=== PATIENT | female | born 1950 | race African-American/Black ===

== ENCOUNTER 2017-08-20 04:47 | Inpatient (IN) | payer OTHER, BC ==
[~2017-08-20] VITALS: Ht 167.6 cm; Wt 68.9 kg
--- NOTE | ~2017-08-20 | EXE ---
[facility] [address] [employer] [place] [address] STRESS ECHOCARDIOGRAM Name: ANGE JEROME Room #: 170-1 ADM IN .R.#: [id number] Admission: 08/20/17 Attend Phys: Nii Haines, Discharge: Date of : 46 Date of Service: 08/20/17 1043 Report #: [id number] THIS REPORT FOR: //name// APPROVED REPORT Exam: Stress Echocardiogram Indication: Chest pain Patient Location: Echo lab Stress Nurse: Sue Rubin RN Room #: ER 1 Status: routine Ht: 5 ft 6 in HR: 103 bpm BP: 140/84 mmHg Medical History Medical History: Diabetes, HTN Cardiac Risk Factors: HTN, DM Exercise History: Sedentary Procedure The patient underwent an Exercise Stress Test using the Jim Protocol. Blood pressure, heart rate, and EKG were monitored. An Echocardiogram was performed by field support technician in four stages in quad fashion. At peak stress, four selected images were obtained and placed side by side with resting images for comparison. Echo Enhancing Agent Indication: Endocardial border delineation Agent(s) / Amount(s) Used: Optison 6 cc Stress Test Details Stress Test: Exercise stress testing was performed using a Jim protocol. HR Resting HR: 103 bpm Max Heart Rate (APMHR): 151 bpm Max HR Achieved: 150 bpm Target HR (85% APMHR): 128 bpm % of APMHR: 99 Recovery HR: 106 bpm HR response to stress: Normal HR response to stress BP Resting BP: 140/843 mmHg Max BP: 172/70 mmHg [facility] [address] [place] [address] STRESS ECHOCARDIOGRAM Name: ANGE JEROME Room #: 170-1 ADM IN .R.#: [id number] Admission: 08/20/17 Attend Phys: Nii Haines, Discharge: Date of : 46 Date of Service: 08/20/17 1043 Report #: [id number] Recovery BP: 138/68 mmHg ECG Resting ECG: Sinus Rhythm Stress ECG: Sinus Tachycardia Recovery ECG: Sinus Rhythm Clinical Reason for Termination: Maximal effort Exercise duration: 2 min 23 sec Highest Stage Achieved: Stage 1: 1.7 mph at 10% grade. Exercise capacity: 4.6 METs Overall Exercise Capacity for Age: Extremely Poor Stress ECG Conclusion 1. subjectively negative for ischemia 2. electrocardiographically negative for ischemia 3. POOR functional capacity Pre-Stress Echo The resting Echocardiogram showed normal left ventricular contractility with an estimated Ejection Fraction of about 55-60%. Post-Stress Echo The stress Echocardiogram showed normal left ventricular contractility with an estimated Ejection Fraction of about 65-70%. Normal augmentation of wall motion in all segments on post stress images. Clinical Normal augmentation of myocardial wall segments using a 17 segment model. Conclusion 1. LOW RISK STUDY No prior study available for comparison. Other Information Study Quality: Good <Conclusion> 1. LOW RISK STUDY <ELECTRONICALLY SIGNED> By: Vinod Avina MD 08/20/17 1043 1043 1043 Vinod Avina MD /INF
--- NOTE | ~2017-08-20 | EKG ---
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1950 Requested By: Yonis Cochran Order Number: [id number] MD: Fabian Thomson Measurements Intervals [place] Rate: 108 P: 86 MN: 147 QRS: 25 QRSD: 78 T: 18 QT: 336 QTc: 451 Interpretive Statements Sinus tachycardia Nonspecific ST segment abnormality Compared to ECG 06/06/2011 01:25:53 Atrial premature complex(es) no longer present Electronically Signed On 08-20-2017 8:37:03 INTERMEDIATE SCHOOL TEACHER by Fabian Thomson [email or web address] <ELECTRONICALLY SIGNED> By: Fabian Thomson MD, [facility] 08/20/17 0837 2 045 Fabian Thomson MD, [facility] /EPI
[~2017-08-20 04:47] MED LIST: ADULT LOW DOSE81 MG PO; AMLODIPINE BESYL5 MG PO; ATIVAN1 MG PO; CELEXA 10 MG TA10 M1 PO; FLEXERIL PO; GLIPIZIDE ER10 MG PO; GLIPIZIDE XL10 MG PO; GLUCOPHAGE XR500 MG; LISINOPRIL10 MG PO; MECLIZINE 25 MG25 M1 PO; MEDROL DOSPAK21 TAB PO; MOTRIN 600 MG600 M1 OR; NORVASC10 MG PO; SYNTHROID100 MCG PO; SYNTHROID150 MCG PO; VALIUM2 MG PO; [UNRECOGNIZED DRUG - REMARK]
[2017-08-20 05:01] VITALS: BP 153/75
[2017-08-20] MEDS ORDERED: GLUCOTROL5 MG PO (05:07)
[2017-08-20] MEDS ORDERED: TRULICITY0.75 MG/0. SUBQ (05:08)
[2017-08-20 05:38] LABS: ABSOLUTE NEUTROPHILS 3.9 thou/uL (1.4-8.2); BASOPHILS 0.9 % (0.0-2.0); EOSINOPHILS 4.9 % (0.0-3.0); HEMATOCRIT 42.2 % (37.0-47.0); HEMOGLOBIN 14.4 gm/dL (12.0-15.0); MCH 27.2 pg (26.0-34.0); MCV 79.9 fL (80.0-100.0); MONOCYTES 8.4 % (1.0-8.0); PLATELET COUNT 290 thou/uL (150-400); POLYS 54.8 % (36.0-66.0); RBC 5.28 mil/uL (4.20-5.00); RDW 14.3 % (10.5-14.5); WBC 7.1 thou/uL (4.0-11.0)
[2017-08-20 05:50] LABS: ANION GAP 9 mmol/L (7-16); BUN 13 mg/dL (7-18); CALCIUM 8.9 mg/dL (8.5-10.1); CHLORIDE 104 mmol/L (98-107); CO2 25 mmol/L (21-32); CREATININE 0.7 mg/dL (0.6-1.0); GLUCOSE 185 mg/dL (74-106); SODIUM 138 mmol/L (136-145)
[2017-08-20 05:56] LABS: D-DIMER 0.31 ug/mLFEU (0.19-0.50); PROTIME 10.7 Seconds (9.3-11.4)
[2017-08-20 05:59] LABS: ALBUMIN 3.5 g/dL (3.4-5.0); MAGNESIUM 2.2 mg/dL (1.8-2.4); SGOT 19 U/L (15-37); SGPT 27 U/L (30-65); TOTAL BILIRUBIN 0.2 mg/dL (<0.1-1.0); TOTAL PROTEIN 7.8 g/dL (6.4-8.2); TROPONIN-I < 0.04 ng/mL (<0.06)
[2017-08-20] MEDS ORDERED: PROTONIX40 M1 PO (15:42)
[2017-08-20 15:47] VITALS: BP 132/60
[2018-04-11] MEDS ORDERED: SYNTHROID137 MC1 PO (10:04)
[2018-04-11] MEDS ORDERED: LOPERAMIDE 2 MG2 M1 PO (11:12)
[2018-05-14] MEDS ORDERED: LISINOPRIL20 MG PO (11:54)
[2018-05-14] MEDS ORDERED: ATIVAN0.5 MG PO (12:05)
== END 2017-08-20 16:40 | disposition home or self-care (01) | DRG 392 ==
LOC: ER 04:47 → EROBS 06:19
PROVIDERS: Emergency Medicine
DX: K21.9 Gastro-esophageal reflux disease without esophagitis (principal); E11.9 Type 2 diabetes mellitus without complications; I10 Essential (primary) hypertension; E78.5 Hyperlipidemia, unspecified; E89.0 Postprocedural hypothyroidism; Z80.0 Family history of malignant neoplasm of digestive organs; Z82.49 Family history of ischemic heart disease and other diseases of the circulatory system; Z90.710 Acquired absence of both cervix and uterus; Z79.899 Other long term (current) drug therapy; Z79.82 Long term (current) use of aspirin

== ENCOUNTER → 2018-01-21 | Outpatient (CLI) | payer OTHER, BC ==
[~2018-01-21] MED LIST changes: +GLUCOTROL5 MG PO; +PROTONIX40 M1 PO; +TRULICITY0.75 MG/0. SUBQ
== END ==
LOC: MRI 13:40
DX: M51.25 Other intervertebral disc displacement, thoracolumbar region (principal); M51.26 Other intervertebral disc displacement, lumbar region; M48.061 Spinal stenosis, lumbar region without neurogenic claudication; M47.897 Other spondylosis, lumbosacral region

== ENCOUNTER → 2018-05-18 | Outpatient (CLI) | payer OTHER, BC ==
[~2018-05-18] VITALS: Ht 165.1 cm; Wt 68.0 kg
[~2018-05-18] MED LIST changes: +ATIVAN0.5 MG PO; +LISINOPRIL20 MG PO; +LOPERAMIDE 2 MG2 M1 PO; +SYNTHROID137 MC1 PO
--- NOTE | ~2018-05-18 | PATH ---
[facility] [place] [address] [address] PATHOLOGY RPT PROCEDURE Name: JOSIE JERMOE Room #: REG BEVERLY Tuttle.#: [id number] Admission: 05/18/18 Date of : 46 Discharge: Report #: [id number] Path Case #: [id number] [facility] Accession Number: [id number] . 01 Material submitted: . PART A: RIGHT COLON BX R/O MICROSCOPIC COLITIS PART B: LEFT COLON BX R/O MICROSCOPIC COLITIS PART C: POLYP HEPATIC FLEXURE . 01 Clinical history: . Preop diagnosis: Diarrhea, screening Postop diagnosis: R/O microscopic colitis, colon polyp A. R/O microscopic colitis B. R/O microscopic colitis . 02 Diagnosis: A. Large intestinal mucosa, right colon, rule out microscopic colitis, endoscopic biopsy: - Mild focal active cryptitis with rare neutrophil/eosinophil, please see comment. - Negative for dysplasia or malignancy. . B. Large intestinal mucosa, left colon, endoscopic biopsy: - Reactive hyperplastic changes associated with lamina propria fibrosis (please see comment). - Negative for dysplasia or malignancy. . C. Polyp, at hepatic flexure, endoscopic biopsy: - Tubular adenoma. - Negative for high grade dysplasia. LBQ/05/20/2018 . 02 Comment: Examination of the right colon biopsy tissue shows mild focal active cryptitis with rare neutrophil, or eosinophil. The lamina propria cellularity shows a mild increase in eosinophils as well. Increased apoptosis is noted within the surface epithelium. There are no ulcerations, crypt abscesses, or granulomata identified. . The left colon biopsy tissue shows no evidence of active cryptitis present. Hyperplastic changes are identified within the mucosa in addition to lamina propria fibrosis. . There is no evidence of collagenous colitis, or lymphocytic colitis identified. Based on the morphology, the right colon appears to be a non-specific reactive change either secondary to allergic colitis, collagen vascular diseases, parasitic infection, or even eosinophilic [facility] [address] [place] [address] PATHOLOGY RPT PROCEDURE Name: JOSIE JEROME Room #: REG [facility].#: [id number] Admission: 05/18/18 Date of : 46 Discharge: Report #: [id number] Path Case #: [id number] colitis in addition to medication induced colitis. On the other hand, the left colon appears to show a chronic colitis with reactive hyperplastic changes. The differential diagnosis includes diverticulitis for the left sided colitis. Findings to suggest inflammatory bowel disease are not identified. Please correlate clinically and follow-up as indicated. (IUV/db; 05/20/18) . 02 Electronically signed: . Litzy Chen MD, Pathologist NPI- [id number] . 01 Gross description: . A. Received in formalin labeled "Josie Jerome, R colon BX," are six segments of arellano soft tissue measuring 1.1 x 0.6 x 0.3 cm in aggregate dimensions and ranging from 0.2 to 0.6 cm in maximum dimension. The specimen is submitted entirely in cassette A1. . B. Received in formalin labeled "Pallavi, Josie, L colon BX," are five segments of arellano soft tissue measuring 0.7 x 0.6 x 0.3 cm in aggregate dimensions and ranging from 0.2 to 0.5 cm in maximum dimension. The specimen is submitted entirely in cassette B1. . C. Received in formalin labeled "Josie Jerome, polyp hepatic flexure," is a segment of arellano-brown soft tissue measuring 0.5 x 0.3 x 0.3 cm in greatest dimensions. The specimen is submitted entirely in cassette C1. ([facility]; 05/19/2018) XDC/XDC . 02 Pathologist provided ICD-10: D12.3, K63.9 . 02 CPT . 655666, 232567, 885716 Specimen Comment: A courtesy copy of this report has been sent to Specimen Comment: [phone], . Specimen Comment: Report sent to / DR GARCIA Performed at: [address], [place] [id number] MD Jeramy Nieto MD Phone: [phone] Performed at: [address] [id number] MD Litzy Chen MD Phone: [phone]
== END | disposition home or self-care (01) ==
LOC: GI 07:57
DX: D12.3 Benign neoplasm of transverse colon (principal); K62.89 Other specified diseases of anus and rectum; D17.5 Benign lipomatous neoplasm of intra-abdominal organs; K64.8 Other hemorrhoids; I10 Essential (primary) hypertension; E11.9 Type 2 diabetes mellitus without complications; E03.9 Hypothyroidism, unspecified; F41.9 Anxiety disorder, unspecified; Z98.890 Other specified postprocedural states; Z79.4 Long term (current) use of insulin; Z90.710 Acquired absence of both cervix and uterus; Z79.899 Other long term (current) drug therapy
CPT/HCPCS: 62110; 62900

== ENCOUNTER 2019-08-04 02:25 | Emergency (ER) | payer OTHER, BC ==
[~2019-08-04] VITALS: Ht 160 cm; Wt 61.2 kg
[2019-08-04 03:26] LABS: ABSOLUTE NEUTROPHILS 2.8 thou/uL (1.4-8.2); BASOPHILS 1.3 % (0.0-2.0); EOSINOPHILS 3.7 % (0.0-3.0); HEMATOCRIT 44.4 % (37.0-47.0); HEMOGLOBIN 14.8 gm/dL (12.0-15.0); LYMPHOCYTES 35.8 % (24.0-44.0); MCH 27.1 pg (26.0-34.0); MCHC 33.3 g/dL (28.0-37.0); MCV 81.4 fL (80.0-100.0); MONOCYTES 8.3 % (1.0-8.0); PLATELET COUNT 248 thou/uL (150-400); POLYS 50.9 % (36.0-66.0); RBC 5.46 mil/uL (4.20-5.00); RDW 14.4 % (10.5-14.5); WBC 5.5 thou/uL (4.0-11.0)
[2019-08-04 03:34] LABS: CALCIUM 8.8 mg/dL (8.5-10.1); CREATININE 0.8 mg/dL (0.6-1.0); POTASSIUM 3.7 mmol/L (3.5-5.1)
[2019-08-04 03:39] LABS: ALBUMIN 3.5 g/dL (3.4-5.0); TOTAL BILIRUBIN 0.4 mg/dL (<0.1-1.0); TOTAL PROTEIN 7.8 g/dL (6.4-8.2)
[2019-08-04 04:20] VITALS: BP 123/69
== END 2019-08-04 04:20 | disposition home or self-care (01) ==
LOC: ER 02:25
PROVIDERS: Emergency Medicine
DX: E11.65 Type 2 diabetes mellitus with hyperglycemia (principal); I10 Essential (primary) hypertension; E03.9 Hypothyroidism, unspecified; F41.9 Anxiety disorder, unspecified; Z90.49 Acquired absence of other specified parts of digestive tract; Z90.710 Acquired absence of both cervix and uterus

== ENCOUNTER 2021-03-21 22:50 | Inpatient (IN) | payer OTHER, BC ==
[~2021-03-21] VITALS: Ht 160 cm; Wt 71.7 kg
[2021-03-21 22:52] VITALS: BP 137/53
[2021-03-21 23:30] LABS: ABSOLUTE NEUTROPHILS 11.5 thou/uL (1.4-8.2); BASOPHILS 0.3 % (0.0-2.0); EOSINOPHILS 0.1 % (0.0-3.0); HEMATOCRIT 39.7 % (37.0-47.0); HEMOGLOBIN 13.3 gm/dL (12.0-15.0); LYMPHOCYTES 6.5 % (24.0-44.0); MCH 27.3 pg (26.0-34.0); MCHC 33.6 g/dL (28.0-37.0); MCV 81.4 fL (80.0-100.0); MONOCYTES 4.2 % (1.0-8.0); PLATELET COUNT 360 thou/uL (150-400); POLYS 88.9 % (36.0-66.0); RBC 4.88 mil/uL (4.20-5.00); RDW 14.7 % (10.5-14.5); WBC 12.9 thou/uL (4.0-11.0)
[2021-03-21 23:55] LABS: APTT 27.4 Seconds (24.5-32.8); INR 1.22; PROTIME 13.2 Seconds (10.5-12.1)
[2021-03-22] VITALS (10 sets, daily range): BP systolic 111–139; BP diastolic 53–69
[2021-03-22 00:01] LABS: BE(vivo) -0.3 mmol/L (-2 to +3); HCO3 22.3 mmol/L (22.0-26.0); PCO2 30.8 mmHg (35.0-45.0); PO2 62.4 mmHg (80.0-100.0); pH 7.477 (7.360-7.450); sO2 93.6 % (92.0-98.0)
[2021-03-22 00:36] LABS: ANION GAP 18 mmol/L (7-16); BUN 21 mg/dL (7-18); CALCIUM 8.5 mg/dL (8.5-10.1); CHLORIDE 101 mmol/L (98-107); CO2 20 mmol/L (21-32); CREATININE 1.1 mg/dL (0.6-1.0); GLUCOSE 279 mg/dL (74-106); POTASSIUM 3.9 mmol/L (3.5-5.1); SODIUM 139 mmol/L (136-145)
[2021-03-22 00:47] LABS: ALBUMIN 2.3 g/dL (3.4-5.0); SGOT 73 U/L (15-37); SGPT 44 U/L (30-65); TOTAL BILIRUBIN 0.7 mg/dL (0.2-1.0); TOTAL PROTEIN 8.4 g/dL (6.4-8.2); TROPONIN-I <0.06 ng/mL (<0.06)
[2021-03-22 07:43] LABS: HEMATOCRIT 36.4 % (37.0-47.0); HEMOGLOBIN 12.2 gm/dL (12.0-15.0); MCH 27.4 pg (26.0-34.0); MCHC 33.4 g/dL (28.0-37.0); RBC 4.44 mil/uL (4.20-5.00); RDW 14.5 % (10.5-14.5)
[2021-03-22 07:58] LABS: ALBUMIN 2.1 g/dL (3.4-5.0); CALCIUM 8.2 mg/dL (8.5-10.1); CREATININE 0.9 mg/dL (0.6-1.0); POTASSIUM 4.2 mmol/L (3.5-5.1); TOTAL BILIRUBIN 0.4 mg/dL (0.2-1.0); TOTAL PROTEIN 7.4 g/dL (6.4-8.2)
[2021-03-22 15:35] LABS: BE(vivo) 2.1 mmol/L (-2 to +3); HCO3 25.5 mmol/L (22.0-26.0); PCO2 35.8 mmHg (35.0-45.0); PO2 144.5 mmHg (80.0-100.0)
--- NOTE | 2021-03-22 17:07 | NUR ---
71-year-old female presents to the ED on 03-21-21 with chief complaint of shortness of breath. Patient was recently diagnosed with COVID-19 and has been sick for approximately 7 days prior to ED visit. Patient continues to have shortness of breath with cough, fever and myalgias. Patient also had some diarrhea. The patient reports her symptoms are worse with exertion and better with rest. The patient informed the ED physician she was not vaccinated. CXR reveals interstitial opacities consistent with atypical Covid Pneumonia. The patient has been admitted with: Acute hypoxic resp failure. COVID PNA. As of 03-22-21 02 sat of 95 n BIPAP at 100% FI02. In the ED the patient is listed per assessment as A&O x4. The patient asked that her spouse with her point of contact as next of kin as Farhat [phone].
[2021-03-22 17:59] LABS: URINE BILIRUBIN NEGATIVE (Negative); URINE BLOOD 1+ (Negative); URINE CLARITY SL CLOUDY; URINE COLOR YELLOW; URINE GLUCOSE-RANDOM* 2+ (Negative); URINE KETONES 2+ (Negative); URINE LEUKOCYTES-REFLEX NEGATIVE (Negative); URINE NITRITE-REFLEX NEGATIVE (Negative); URINE PROTEIN (DIPSTICK) 1+ (Negative)
[2021-03-22 18:20] LABS: SQUAMOUS 0-3 Few /LPF (0-3); URINE WBC-REFLEX 0-5 Rare /HPF (0-5)
[2021-03-22 18:21] LABS: BACTERIA-REFLEX 1-9 Few /HPF (None Seen); URINE RBC 3-10 Few /HPF (NONE SEEN)
[2021-03-23] VITALS (68 sets, daily range): BP systolic 64–152; BP diastolic 37–83
[2021-03-23 05:11] LABS: HEMATOCRIT 41.8 % (37.0-47.0); HEMOGLOBIN 13.7 gm/dL (12.0-15.0); MCHC 32.7 g/dL (28.0-37.0); MCV 82.7 fL (80.0-100.0); RBC 5.06 mil/uL (4.20-5.00); RDW 15.1 % (10.5-14.5); WBC 12.8 thou/uL (4.0-11.0)
--- NOTE | 2021-03-23 05:35 | HC ---
[facility] [place] [address] [place] [address] CONSULTATION Name: ANGE JEROME Room #: [facility] [place]- ADM IN M.R.#: [id number] Admission: 03/22/21 Attend Phys: Petey Moy Discharge: Date of : 46 Report #: [id number] THIS REPORT FOR: cc: Simona Engle Beth RNP Barry, Joseph W. MD ~ DATE OF SERVICE: 03/22/2021 INFECTIOUS DISEASE CONSULTATION ATTENDING PHYSICIAN: Dr. Moy. REASON FOR EVALUATION: COVID-19 infection, complicated by pneumonitis and respiratory failure. HISTORY OF PRESENT ILLNESS: Chart reviewed and the patient examined. This is a 71-year-old woman with history of diabetes mellitus, hypertension, who presented to the Emergency Room with progressive dyspnea, has had cough as well. Apparently diagnosed with COVID-19 infection 1 week prior. She notes she initially had fever and chills. She has developed a poor appetite and minimal p.o. intake as well. She does admit to some degree of discomfort. Initial evaluation showed a lactic acid of 2.9, repeat was 1.9. D-dimer elevated to 12.72, although CT chest showed no evidence of PE. Initial ABGs: pH 7.477, pCO2 of 30.8, pO2 of 62.4 on 100% face mask. Procalcitonin 0.57. Blood cultures collected at time of admission are sterile thus far. ABGs were repeated, pH 7.470, pCO2 of 35.8, pO2 of 144.5 on BiPAP 100%. Was initiated on therapy with azithromycin, ceftriaxone, and remdesivir. ALLERGIES: None known. CURRENT MEDICATIONS: Include furosemide, apixaban, famotidine, dexamethasone, ceftriaxone, insulin sliding scale, p.r.n. analgesics, antiemetics, azithromycin, and remdesivir. PAST MEDICAL HISTORY: As described above, history of diabetes mellitus type 2, hypertension, hypothyroidism. SOCIAL HISTORY: Nonsmoker, no ethanol, no illicit drug use. FAMILY HISTORY: Noncontributory. REVIEW OF SYSTEMS: Somewhat limited otherwise unremarkable. PHYSICAL EXAMINATION: GENERAL: She appears chronically ill and undernourished. She is anxious, moderate distress at rest. Mildly encephalopathic. [facility] [address] [place] [address] CONSULTATION Name: ANGE JEROME Room #: [address] [place] [address] [place] [facility].#: [id number] Admission: 03/22/21 Attend Phys: Petey Moy Discharge: Date of : 46 Report #: [id number] VITAL SIGNS: Temperature 98, pulse 90, respirations 26, blood pressure 116/57. SKIN: Warm, dry, no rashes. HEENT: Normocephalic, has BiPAP in place. NECK: Supple. LUNGS: Scattered coarse breath sounds. HEART: Distant, appears to be regular. ABDOMEN: Mildly distended, somewhat firm, nontender. EXTREMITIES: No cyanosis. GENITOURINARY AND RECTAL: Deferred. LABORATORY DATA: ABGs noted above, pH 7.470, pCO2 of 35.8, pO2 144.5 on 100% nonrebreather. Electrolytes: Sodium 142, potassium 4.2, chloride 107, bicarbonate 25, anion gap of 10, BUN and creatinine 18 and 0.9, glucose of 312, AST of 61, ALT of 44. Albumin 2.1. Total protein 7.4. CBC: White count of 11.0, H and H 12.2 and 36.4, platelets of 290. Blood culture sterile thus far. Followup chest x-ray showed perihilar interstitial opacities. CRP elevated at 477. ASSESSMENT: COVID-19 infection, complicated by pneumonitis, respiratory failure in the setting of diabetes mellitus and hypertension. PLAN: We will continue current therapy empirically with ceftriaxone and azithromycin and therapy directed to the coronavirus. We will add ivermectin, vitamins, Actemra in addition to the corticosteroids and remdesivir. She remains quite tenuous at this point, certainly at risk for further complications and clinical deterioration with possibility of mechanical ventilatory support. Continue to monitor expectantly. <ELECTRONICALLY SIGNED> By: Francisco Barnett MD 03/23/21 0535 1446 2303 Francisco Barnett MD /nt
[2021-03-23 05:39] LABS: ALBUMIN 2.1 g/dL (3.4-5.0); CALCIUM 8.6 mg/dL (8.5-10.1); CREATININE 0.8 mg/dL (0.6-1.0); DIRECT BILIRUBIN 0.2 mg/dL (<0.1-0.2); PHOSPHORUS 2.8 mg/dL (2.5-4.9); POTASSIUM 4.4 mmol/L (3.5-5.1); TOTAL BILIRUBIN 0.5 mg/dL (0.2-1.0); TOTAL PROTEIN 8.1 g/dL (6.4-8.2)
--- NOTE | 2021-03-23 06:38 | NUR ---
PATIENT ARRIVED AT THE UNIT AT APPROX 2200. PT A/OX4. DENIES N/V, PAIN. ON 10L VIA NON REBREATHER SATS >90%. AFEBRILE. VSS. KRISHNAMURTHY IN PLACE WITH GOOD U/O. DENIES NEEDS. WILL KEEP MONITORING
--- NOTE | 2021-03-23 09:27 | EKG ---
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1950 Requested By: Hubert Goldman Order Number: [id number] MD: Fabian Thomson Measurements Intervals [place] Rate: 133 P: 74 NC: 123 QRS: 28 QRSD: 80 T: 6 QT: 280 QTc: 417 Interpretive Statements Sinus tachycardia Nonspecific ST segment abnormality Borderline T wave abnormalities Compared to ECG 04/11/2018 09:05:[address] and T wave segments Electronically Signed On 03-23-2021 9:27:06 CDT by Fabian Thomson [email or web address] <ELECTRONICALLY SIGNED> By: Fabian Thomson MD, [facility] 03/23/21926 29 29 Fabian Thomson MD, [facility] /EPI
--- NOTE | 2021-03-23 12:20 | NUR ---
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 Patient admits from home. Reviewed chart. Patient on 15 liters non rebreather. Lives at home with spouse. She is not vaccinated. PCP Simona Martinez. Had medicare/ [facility]. Casemgt avail and following for dc planning.
--- NOTE | 2021-03-23 12:40 | NUR ---
PATIENT REMOVED BOTH IV'S. PATIENT IS AOX4 AND REFUSES PERIPHERAL IV PLACEMENT AND CENTRAL LINE PLACEMENT.
[2021-03-23 16:05] LABS: HCO3 22.3 mmol/L (22.0-26.0); PCO2 40.6 mmHg (35.0-45.0); PO2 93.7 mmHg (80.0-100.0); pH 7.357 (7.360-7.450); sO2 96.9 % (92.0-98.0)
[2021-03-24] VITALS (96 sets, daily range): BP systolic 67–137; BP diastolic 39–68
[2021-03-24 04:13] LABS: ABSOLUTE NEUTROPHILS 14.4 thou/uL (1.4-8.2); BASOPHILS 0.5 % (0.0-2.0); HEMATOCRIT 37.6 % (37.0-47.0); HEMOGLOBIN 12.5 gm/dL (12.0-15.0); LYMPHOCYTES 4.4 % (24.0-44.0); MCH 27.6 pg (26.0-34.0); MCHC 33.2 g/dL (28.0-37.0); MCV 83.2 fL (80.0-100.0); MONOCYTES 3.7 % (1.0-8.0); PLATELET COUNT 312 thou/uL (150-400); POLYS 91.4 % (36.0-66.0); RBC 4.52 mil/uL (4.20-5.00); RDW 14.9 % (10.5-14.5); WBC 15.8 thou/uL (4.0-11.0)
[2021-03-24 04:37] LABS: CALCIUM 7.7 mg/dL (8.5-10.1); CREATININE 1.6 mg/dL (0.6-1.0); DIRECT BILIRUBIN 0.2 mg/dL (<0.1-0.2); PHOSPHORUS 4.2 mg/dL (2.5-4.9); TOTAL BILIRUBIN 0.4 mg/dL (0.2-1.0); TOTAL PROTEIN 7.5 g/dL (6.4-8.2)
--- NOTE | 2021-03-24 08:38 | NUR ---
ASSUMED CARE AT 0700 SPOKE TO PATIENT DOMESTIC PARTNER AT 0840 AND UPDATED PER POC AND ANSWERED ALL QUESTIONS.
[2021-03-25] VITALS (98 sets, daily range): BP systolic 74–155; BP diastolic 40–71
[2021-03-25 05:24] LABS: HEMATOCRIT 39.4 % (37.0-47.0); HEMOGLOBIN 12.7 gm/dL (12.0-15.0); MCH 26.8 pg (26.0-34.0); MCHC 32.1 g/dL (28.0-37.0); MCV 83.4 fL (80.0-100.0); RBC 4.73 mil/uL (4.20-5.00); RDW 15.3 % (10.5-14.5)
[2021-03-25 05:25] LABS: CALCIUM 8.4 mg/dL (8.5-10.1); CREATININE 1.8 mg/dL (0.6-1.0); DIRECT BILIRUBIN 0.2 mg/dL (<0.1-0.2); PHOSPHORUS 4.5 mg/dL (2.6-4.7); POTASSIUM 3.9 mmol/L (3.5-5.1); TOTAL BILIRUBIN 0.4 mg/dL (0.2-1.0); TOTAL PROTEIN 7.4 g/dL (6.4-8.2)
--- NOTE | 2021-03-25 08:52 | NUR ---
ASSUMED CARE OF PT AT 0700 SPOKE TO PT SON AT 0850 AND UPDATED HIM PER POC AND LET HIM KNOW THAT THE WOMAN NAMED MICKIE IS CALLING AGAIN ASKING FOR UPDATES AND HE STATED HE WOULD CALL HER AND TELL HER SHE IS NOT FAMILY AND IS NOT TO BE GETTING UPDATES.
--- NOTE | 2021-03-25 23:18 | NUR ---
PT HYPOTHERMIC, TEMP 94.4. WARM BLANKETS APPLIED WITHOUT MUCH IMPROVEMENT IN TEMP. JORGE HUGGER WARMING BLANKET APPLIED. WILL MONITOR FURTHER.
[2021-03-26] VITALS (91 sets, daily range): BP systolic 92–149; BP diastolic 47–71
--- NOTE | 2021-03-26 03:46 | NUR ---
NO SIGNIFICANT EVENTS SO FAR DURING THE NIGHT. PT REMAINS SEDATED WITH PROPOFOL, VERSED, AND FENTANYL. BILATERAL WRIST RESTRAINTS IN PLACE TO PREVENT DISCONNECTING LINES/TUBES. LEVOPHED GTT TITRATED DOWN PT WAS BECOMING HYPERTENSIVE AT HIGHER RATE. RIGHT AND LEFT CHEST TUBES INTACT AND PATENT; AIR LEAK PRESENT IN BOTH CHEST TUBES. PT HAS SUBCUTANEOUS AIR TO BILATERAL SIDES OF HER CHEST. KRISHNAMURTHY TO DD WITH ADEQUATE URINE OUTPUT. TEMP NOW WITHIN NORMAL LIMITS WITH JORGE HUGGER BLANKET IN PLACE. RT TITRATED FIO2 FROM 70% DOWN TO 60% ON VENT. PROGRESSING SLOWLY TOWARD POC GOALS. WILL MONITOR FURTHER.
[2021-03-26 04:39] LABS: HEMATOCRIT 36.7 % (37.0-47.0); HEMOGLOBIN 12.1 gm/dL (12.0-15.0); MCH 27.1 pg (26.0-34.0); MCHC 32.9 g/dL (28.0-37.0); MCV 82.2 fL (80.0-100.0); RBC 4.46 mil/uL (4.20-5.00); RDW 14.9 % (10.5-14.5); WBC 14.8 thou/uL (4.0-11.0)
[2021-03-26 04:53] LABS: ALBUMIN 1.7 g/dL (3.4-5.0); CALCIUM 8.2 mg/dL (8.5-10.1); CREATININE 1.2 mg/dL (0.6-1.0); DIRECT BILIRUBIN 0.2 mg/dL (<0.1-0.2); POTASSIUM 3.6 mmol/L (3.5-5.1); TOTAL BILIRUBIN 0.4 mg/dL (0.2-1.0); TOTAL PROTEIN 6.6 g/dL (6.4-8.2)
--- NOTE | 2021-03-26 05:53 | NUR ---
TEMP 98.0 AXILLARY. WARMING BLANKET TAKEN OFF AT THIS TIME.
--- NOTE | 2021-03-26 10:11 | NUR ---
ASSUMMED CARE OF THIS PATIENT FROM THE NIGHT NURSE, CARLOS EDUARDO. PATIENT REMAINS ON LEVOPHED WHICH WAS TAPPERED DOWN MAP IS GREATER THAN 70MMHG. REMAINS SEDATED. WILL CONTINUE TO MONITOR.
--- NOTE | 2021-03-26 12:45 | NUR ---
1230 SPOKE WITH THE PATIENT'S AND UPDATED HIM ON THE POC. QUESTIONS ANSWERED AND REASSURANCE GIVEN. 1235 SPOKE WITH PATIENT'S SON SOILA AND UPDATED HIM ON THE POC AND REASSURANCE GIVEN, QUESTIONS ADDRESSED.
--- NOTE | 2021-03-26 15:02 | NUR ---
Chart review, discussed during am unite rounds and los with the hospitalist. COVID +. Bedside nurse cont. family. Vent. Nutritional support. Will cont. following as needed for dc needs.
--- NOTE | 2021-03-26 16:38 | NUR ---
PATIENT IS STABLE BUT NOT PROGRESSING TOWARDS OUTCOME GOALS. PLEASE REFER TO ASSESSMENTS. LEVOFHED TAPPERED. PROPOFOL TAPPERED WHILE FENTANYL AND VERSED INCREASED.
--- NOTE | 2021-03-26 21:49 | NUR ---
ASSUMED CARE OF PATIENT AT 190. ALL LINES AND TUBES REVIEWED WITH AM NURSE. AT 2044, PATIENT O2 SAT DROPPED, INCREASINGLY MORE TACHYPNIC WITH BREATHING. RIGHT CHEST TUBE DOES NOT APPEAR TO BE BUBBLING IT WAS AT THE BEGINNING OF SHIFT. DR SHERWOOD NOTIFIED. STAT CXR OBTAINED. RADIOLOGY PHYSICIAN CALLED AND NOTIFIED THIS RN THAT THE RIGHT LUNG IS COLLAPSED. DR SHERWOOD NOTIFIED AT 2129 , WAITING FOR HIM TO COME IN TO REPLACE CHEST TUBE.
[2021-03-27] VITALS (35 sets, daily range): BP systolic 78–139; BP diastolic 44–71
[2021-03-27 04:36] LABS: BE(vivo) 3.8 mmol/L (-2 to +3); HCO3 29.2 mmol/L (22.0-26.0); PCO2 47.2 mmHg (35.0-45.0); PO2 67.2 mmHg (80.0-100.0); pH 7.409 (7.360-7.450); sO2 93.4 % (92.0-98.0)
[2021-03-27 04:52] LABS: HEMATOCRIT 36.5 % (37.0-47.0); HEMOGLOBIN 11.8 gm/dL (12.0-15.0); MCH 26.9 pg (26.0-34.0); MCHC 32.3 g/dL (28.0-37.0); MCV 83.2 fL (80.0-100.0); RBC 4.39 mil/uL (4.20-5.00); RDW 15.1 % (10.5-14.5); WBC 13.3 thou/uL (4.0-11.0)
[2021-03-27 05:47] LABS: CREATININE 1.2 mg/dL (0.6-1.0); POTASSIUM 3.5 mmol/L (3.5-5.1)
--- NOTE | 2021-03-27 09:57 | NUR ---
ASSUMED CARE AT 0700
[2021-03-28] VITALS (45 sets, daily range): BP systolic 95–166; BP diastolic 48–80
[2021-03-28 03:26] LABS: MCH 26.9 pg (26.0-34.0)
[2021-03-28 03:28] LABS: HEMATOCRIT 33.6 % (37.0-47.0); HEMOGLOBIN 10.9 gm/dL (12.0-15.0); MCHC 32.3 g/dL (28.0-37.0); MCV 83.5 fL (80.0-100.0); RBC 4.03 mil/uL (4.20-5.00); RDW 15.3 % (10.5-14.5); WBC 13.6 thou/uL (4.0-11.0)
[2021-03-28 04:00] LABS: BE(vivo) 2.5 mmol/L (-2 to +3); HCO3 28.3 mmol/L (22.0-26.0); PO2 66.3 mmHg (80.0-100.0); sO2 92.6 % (92.0-98.0)
[2021-03-28 04:51] LABS: CALCIUM 7.7 mg/dL (8.5-10.1); POTASSIUM 3.9 mmol/L (3.5-5.1)
--- NOTE | 2021-03-28 06:28 | NUR ---
ASSUMED CARE OF PATIENT AT 1900. TITRATED LEVOPHED OFF AT THIS TIME. PROPOFOL TITTRATED DOWN, PATIENT MORE ALERT, FOLLOWING COMMANDS. NO S/S OF DISTRESS. NO CONTACT WITH FAMILY THIS SHIFT.
--- NOTE | 2021-03-28 11:29 | NUR ---
ASSUMED CARE OF PT AT 0700 DR. ARNOLD AT BEDSIDE AT 1115, NO NEW ORDERS GIVEN
--- NOTE | 2021-03-28 12:23 | NUR ---
SPOKE TO PT'S SON ANGIE AT 1220 AND UPDATED PER POC AND ANSWERED ALL QUESTIONS
[2021-03-29] VITALS (53 sets, daily range): BP systolic 84–176; BP diastolic 49–81
[2021-03-29 05:28] LABS: HEMATOCRIT 31.2 % (37.0-47.0); HEMOGLOBIN 10.2 gm/dL (12.0-15.0); MCH 27.7 pg (26.0-34.0); MCHC 32.8 g/dL (28.0-37.0); MCV 84.4 fL (80.0-100.0); RBC 3.7 mil/uL (4.20-5.00); RDW 15.4 % (10.5-14.5); WBC 14.3 thou/uL (4.0-11.0)
[2021-03-29 05:40] LABS: CALCIUM 8.5 mg/dL (8.5-10.1); CREATININE 0.9 mg/dL (0.6-1.0); POTASSIUM 4.1 mmol/L (3.5-5.1)
--- NOTE | 2021-03-29 12:26 | NUR ---
1220HRS - PT'S SON CALLED WITH PT'S NIECE (TREAD BOOKER AT [facility]). THEY WERE BOTH UPDATED AND INFORMED OF PT'S CONDITION.
--- NOTE | 2021-03-29 15:22 | HC ---
[facility] [place] [address] [address] CONSULTATION Name: ANGE JEROME Room #: 241-P [facility] IN M.R.#: [id number] Admission: 03/22/21 Attend Phys: Petey Moy Discharge: Date of : 46 Report #: [id number] THIS REPORT FOR: cc: Simona Engle Beth RNP Forman, John M. MD ~ DATE OF SERVICE: 03/28/2021 We were asked to see the patient by Dr. South. HISTORY OF PRESENT ILLNESS: The patient is a 71-year-old admitted 03/21/2021 with acute hypoxic respiratory failure related to COVID pneumonia. The patient stated that she had tested positive for COVID 1 week prior to admission. The patient had been exposed to preschool children and family. The patient initially had cough, fever, chills, and poor appetite. The patient stated that she had not been feeling well. She was seen in the Emergency Department 03/21/2021 and 03/22/2021. Chest x-ray showed bilateral patchy infiltrate consistent with COVID pneumonia and she was intubated. Since admission, the patient has been on the ventilator. The patient had problems with barotrauma and sustained a pneumothorax on the left side after central line was placed. Pigtail catheter was placed for this. Another pneumothorax developed on the right was treated with a pigtail catheter, but this fell out Friday night and a chest tube was placed on 03/26/2021. We were consulted because of a small persistent pneumothorax on the right. Chest x-ray shows that the chest tube is basal in position and not inserted very far. In addition, on closer inspection, the tube appears to be full of clot. An intermittent air leak was seen through both chest tubes. PAST MEDICAL HISTORY: Positive for diabetes mellitus, hypertension, hypothyroidism as well as COVID. MEDICATIONS: Medications at home includes levothyroxine, amlodipine, glipizide, lisinopril. REVIEW OF SYSTEMS: The patient is intubated and I have no reason to differ with the review of systems in the chart already. PHYSICAL EXAMINATION: GENERAL: The patient is intubated and sedated. VITAL SIGNS: Temperature 36.9, heart rate 100, blood pressure 146/69, pulse ox 95 on 12 liters documented, 60% and a PEEP. HEENT: No scleral icterus. NECK: No mass, no bruit. [facility] [address] [place] [address] CONSULTATION Name: ANGE JEROME Room #: 241-P [facility] IN [facility].#: [id number] Admission: 03/22/21 Attend Phys: Petey Moy Discharge: Date of : 46 Report #: [id number] CHEST: The patient has subcutaneous emphysema palpable. Breath sounds are clear with some scattered rhonchi. HEART: Heart tones are distant. Heart rhythm regular. ABDOMEN: Soft. EXTREMITIES: Trace edema. No clubbing, cyanosis. As mentioned, chest x-ray shows a small rim of air around the right lung, but otherwise it is expanded with patchy infiltrates, left lung has scattered infiltrates with no pneumothorax. Chest tube itself has clotted blood within it. I took a sterile endotracheal suction catheter and the sterile technique, cleaned out the chest tube of clot. When this was completed, the chest tube was placed back to [facility] suction with a more continuous air leak indicating patency of the tube. Chest x-ray was obtained that showed only a small apical and lateral pneumothorax. ASSESSMENT: The patient has barotrauma in the throes of the COVID pneumonia. Currently, both lungs are reasonably well expanded. A right-sided chest tube is a bit basal and a bit superficial and a better chest tube can be placed if it is determined that this makes a difference in the patient's status. At this point, the trivial pneumothorax does not appear to be a limiting problem and there is definitely no evidence of tension. We will follow along with you. Thank you for the consult. <ELECTRONICALLY SIGNED> By: Quan Sim MD 03/29/21 1522 1208 2223 Quan Sim MD /nt
[2021-03-29 19:58] LABS: BE(vivo) 7.3 mmol/L (-2 to +3); HCO3 33.2 mmol/L (22.0-26.0); PCO2 53.1 mmHg (35.0-45.0); PO2 59.4 mmHg (80.0-100.0); pH 7.414 (7.360-7.450); sO2 90.6 % (92.0-98.0)
[2021-03-30] VITALS (54 sets, daily range): BP systolic 100–186; BP diastolic 51–89
[2021-03-30 03:43] LABS: HEMATOCRIT 32.2 % (37.0-47.0); HEMOGLOBIN 10.7 gm/dL (12.0-15.0); MCH 27.8 pg (26.0-34.0); MCHC 33.1 g/dL (28.0-37.0); MCV 84.1 fL (80.0-100.0); RBC 3.83 mil/uL (4.20-5.00); RDW 15.4 % (10.5-14.5); WBC 14.6 thou/uL (4.0-11.0)
[2021-03-30 03:48] LABS: CALCIUM 8.9 mg/dL (8.5-10.1); CREATININE 0.8 mg/dL (0.6-1.0); POTASSIUM 3.8 mmol/L (3.5-5.1)
--- NOTE | 2021-03-30 04:31 | NUR ---
ASSUMED CARE OF PATIENT AT 1900. PATIENT TACHYCARDIC, HYPERTENSIVE, LOW O2 SATS, CRACKLES IN LUNGS. DR SHERWOOD NOTIFIED, CXR AND ABG ORDERED. RESULTS CALLED TO DR SHERWOOD, ORDER FOR LASIX OBTAINED. LASIX GIVEN, OUTPUT CHARTED. REMAINS SEDATED, BLOOD PRESSURE, O2 SAT AND HEART RATE IMPROVED.
--- NOTE | 2021-03-30 14:31 | NUR ---
Chart review, discussed during lost with hospitalist and unite rounds with pulmonary. COVID +, Vent, nutritional support. Isolation. No anticipated discharge. Cm called spouse, no answer. will cont. following as needed for discharge needs.
[2021-03-31] VITALS (42 sets, daily range): BP systolic 90–185; BP diastolic 46–90
--- NOTE | 2021-03-31 12:58 | NUR ---
ASSUMED CARE AT SHIFT CHANGE. PT MAINTAINING OXYGENATION AT CURRENT VENT SETTINGS. WHEN SEDATION MED X1 IS OFF, PT BECOMES TACHYCARDIC,TACHYPNIC, HYPERTENSIVE, AND DESATS TO LOW 90'S- UPPER 80'S. SON IVAN AND GURDEEP UPDATED ON THE PHONE TODAY. PT HAS MINIMAL OUTPUT FROM CHEST TUBES THIS SHIFT. ASSESSMENTS PER OCT. GIVEN MIRALAX TODAY TO STIMULATE BM PT HAS NOT HAD ONE IN SEVERAL DAYS. TF AT GOAL RATE, MINIMAL RESIDUALS. BG CONTROLLED WITH SS INSULIN. WILL CONT TO MONITOR AND FOLLOW POC.
[2021-03-31 15:34] LABS: HEMATOCRIT 31.9 % (37.0-47.0); HEMOGLOBIN 10.3 gm/dL (12.0-15.0); MCHC 32.3 g/dL (28.0-37.0); MCV 83.5 fL (80.0-100.0); RBC 3.82 mil/uL (4.20-5.00); WBC 15.7 thou/uL (4.0-11.0)
[2021-03-31 15:39] LABS: CALCIUM 8.9 mg/dL (8.5-10.1); CREATININE 0.8 mg/dL (0.6-1.0); POTASSIUM 5.7 mmol/L (3.5-5.1)
[2021-04-01] VITALS (26 sets, daily range): BP systolic 80–159; BP diastolic 44–80
[2021-04-01 05:06] LABS: HEMATOCRIT 33.7 % (37.0-47.0); HEMOGLOBIN 10.9 gm/dL (12.0-15.0); MCH 27.3 pg (26.0-34.0); MCHC 32.4 g/dL (28.0-37.0); MCV 84.1 fL (80.0-100.0); RBC 4.01 mil/uL (4.20-5.00); RDW 15.1 % (10.5-14.5); WBC 15.8 thou/uL (4.0-11.0)
[2021-04-01 06:03] LABS: CALCIUM 9.1 mg/dL (8.5-10.1); CREATININE 0.7 mg/dL (0.6-1.0); MAGNESIUM 2.2 mg/dL (1.8-2.4)
[2021-04-01 06:15] LABS: POTASSIUM 4.7 mmol/L (3.5-5.1)
--- NOTE | 2021-04-01 11:23 | NUR ---
ASSUMED CARE OF PT AT 0700.
--- NOTE | 2021-04-01 11:40 | NUR ---
DR. SHERWOOD AT BEDSIDE AT 1140 AND I ASKED HIM ABOUT THE DROP IN O2 AND COULD IT BE RELATED TO WORSENING PNEUMO AND HE INDICATED THAT HE DIDN'T THINK SO BUT THAT DR. PADRON NEEDS TO BE ASKED.
[2021-04-01 16:21] LABS: BE(vivo) 7.5 mmol/L (-2 to +3); HCO3 34.5 mmol/L (22.0-26.0); PCO2 61.8 mmHg (35.0-45.0); PO2 82.8 mmHg (80.0-100.0); pH 7.365 (7.360-7.450); sO2 95.5 % (92.0-98.0)
--- NOTE | 2021-04-01 21:28 | NUR ---
This RN discussed patients [address] South at 1900. No new orders received.
[2021-04-02] VITALS (36 sets, daily range): BP systolic 84–171; BP diastolic 41–77
[2021-04-02 04:55] LABS: CALCIUM 8.8 mg/dL (8.5-10.1); CREATININE 0.7 mg/dL (0.6-1.0); MAGNESIUM 2.1 mg/dL (1.8-2.4); POTASSIUM 4.5 mmol/L (3.5-5.1)
[2021-04-02 04:57] LABS: HEMATOCRIT 32.1 % (37.0-47.0); HEMOGLOBIN 10.6 gm/dL (12.0-15.0); MCH 27.5 pg (26.0-34.0); MCV 83.3 fL (80.0-100.0); RBC 3.86 mil/uL (4.20-5.00); RDW 14.6 % (10.5-14.5)
--- NOTE | 2021-04-02 12:26 | NUR ---
ASSUMED CARE AT 0700. PATIENT'S SON, ANGIE, CALLED FROM [phone] AND HE WAS UPDATED AND EDUCATED ON THE PATIENT'S CONDITION AND PLAN OF CARE.
--- NOTE | 2021-04-02 16:11 | NUR ---
Chart review, discussed during am unite rounds and los. COVID, enhanced isolation. Vent and nutritional support. Chest tube left and right. Will cont. following as needed for dc needs.
--- NOTE | 2021-04-02 19:59 | NUR ---
PATIENT IS NOT PROGRESSING TOWARDS PLAN OF CARE EVIDENCED BY HIGH OXYGEN DEMAND. PATIENT BECOMES TACHYCARDIC WHEN PLACED ON RIGHT SIDE DURING REPOSITIONING.
[2021-04-03] VITALS (66 sets, daily range): BP systolic 79–167; BP diastolic 39–80
[2021-04-03 01:55] LABS: HEMATOCRIT 32.7 % (37.0-47.0); HEMOGLOBIN 10.7 gm/dL (12.0-15.0); MCH 27.3 pg (26.0-34.0); MCHC 32.8 g/dL (28.0-37.0); MCV 83.5 fL (80.0-100.0); RBC 3.92 mil/uL (4.20-5.00); RDW 14.5 % (10.5-14.5); WBC 14.8 thou/uL (4.0-11.0)
[2021-04-03 01:59] LABS: CALCIUM 9.3 mg/dL (8.5-10.1); CREATININE 0.8 mg/dL (0.6-1.0); MAGNESIUM 2.1 mg/dL (1.8-2.4); POTASSIUM 4.9 mmol/L (3.5-5.1)
--- NOTE | 2021-04-03 05:40 | NUR ---
Patient not progressing towards goal, as evidence by the inability to wean Fi02 or PEEP this shift. Patient still not tolerating being turned to right side. Patient not requiring blood pressure support at this time.
--- NOTE | 2021-04-03 12:27 | NUR ---
SPOKE WITH PATIENT'S SON, ANGIE, OVER THE PHONE FROM [phone] AND HE WAS UPDATED AND EDUCATED ON THE PATIENT'S CONDITION AND PLAN OF CARE.
[2021-04-03 13:22] LABS: ALBUMIN 1.8 g/dL (3.4-5.0); DIRECT BILIRUBIN < 0.1 mg/dL (<0.1-0.2); LIPASE 132 U/L (73-393); SGOT 31 U/L (15-37); SGPT 43 U/L (14-59); TOTAL BILIRUBIN 0.3 mg/dL (0.2-1.0); TOTAL PROTEIN 6.7 g/dL (6.4-8.2)
[2021-04-03 18:50] LABS: URINE BILIRUBIN NEGATIVE (Negative); URINE BLOOD TRACE (Negative); URINE CLARITY CLOUDY; URINE COLOR YELLOW; URINE GLUCOSE-RANDOM* NEGATIVE (Negative); URINE KETONES NEGATIVE (Negative); URINE NITRITE-REFLEX NEGATIVE (Negative); URINE PROTEIN (DIPSTICK) NEGATIVE (Negative); URINE SPECIFIC GRAVITY 1.025 (1.005-1.035); URINE UROBILINOGEN 0.2 E.U./dl (0.2-1.0)
[2021-04-03 18:53] LABS: URINE LEUKOCYTES-REFLEX 1+ (Negative)
[2021-04-03 19:14] LABS: AMORPHOUS URATES Moderate /LPF (None Seen); BACTERIA-REFLEX 1-9 Few /HPF (None Seen); CASTS None Seen /LPF (None Seen); MUCUS 0-3 Light strn/LPF (None Seen); SQUAMOUS 0-3 Few /LPF (0-3); URINE RBC 1-2 Rare /HPF (NONE SEEN); URINE WBC-REFLEX 6-15 Few /HPF (0-5)
--- NOTE | 2021-04-03 23:07 | NUR ---
At 2020 on 04/03/21 patient peak pressure were high. RT Carlos informed this RN and then contacted Dr. Santana. Dr. Santana stated he would come in to place a chest tube due to patient earlier x-ray and assessment. MD arrived, MD removed chest tube from right and left and placed new bilateral 28 fr chest tubes. Patient tolerated procedure well with no complications. Left chest tube set to -40 suction, Right chest tube suction set to -30 per MD. MD stated he would notify family. Repeat chest x-ray was done with near by. MD aware of image [id number] patient oxygenation decreased, Dr. Santana notifed, ventilator setting changed and RT notified. Levophed ordered to start if patient MAP decreases.
[2021-04-04] VITALS (100 sets, daily range): BP systolic 86–150; BP diastolic 36–71
[2021-04-04 00:12] LABS: BE(vivo) 11.4 mmol/L (-2 to +3); HCO3 38.9 mmol/L (22.0-26.0); PO2 72.9 mmHg (80.0-100.0); pH 7.388 (7.360-7.450)
[2021-04-04 03:51] LABS: HEMATOCRIT 28.7 % (37.0-47.0); HEMOGLOBIN 9.4 gm/dL (12.0-15.0); MCH 27.4 pg (26.0-34.0); MCHC 32.8 g/dL (28.0-37.0); MCV 83.7 fL (80.0-100.0); PLATELET COUNT 330 thou/uL (150-400); RBC 3.42 mil/uL (4.20-5.00); RDW 14.8 % (10.5-14.5); WBC 13.1 thou/uL (4.0-11.0)
[2021-04-04 04:01] LABS: CALCIUM 8.7 mg/dL (8.5-10.1); CREATININE 0.6 mg/dL (0.6-1.0); MAGNESIUM 2.3 mg/dL (1.8-2.4); POTASSIUM 4.7 mmol/L (3.5-5.1)
[2021-04-04 10:12] LABS: HCO3 38.3 mmol/L (22.0-26.0); PCO2 60.1 mmHg (35.0-45.0); PO2 82.9 mmHg (80.0-100.0); pH 7.422 (7.360-7.450); sO2 96.1 % (92.0-98.0)
[2021-04-04 12:21] LABS: ALBUMIN 1.7 g/dL (3.4-5.0); TOTAL BILIRUBIN 0.2 mg/dL (0.2-1.0)
[2021-04-04 14:01] LABS: METAMYELOCYTES 1 %; MYELOCYTES 5 %
--- NOTE | 2021-04-04 14:20 | NUR ---
PATIENT'S SON, ANGIE, CALLED FROM [phone] AND HE WAS UPDATED AND EDUCATED ON THE PATIENT'S CONDITION AND PLAN OF CARE. ANGIE INFORMED THIS RN THAT HE WOULD LIKE A CALL FROM THE FLAGMAN. THIS RN NOTIFIED THE FLAGMAN AT 1236 BUT HAVE NOT RECEIVED A RESPONSE YET.
--- NOTE | 2021-04-04 20:05 | NUR ---
PATIENT PROGRESSING TOWARDS THE PLAN OF CARE EVIDENCED BY DECREASED OXYGEN REQUIREMENTS.
--- NOTE | 2021-04-04 22:08 | NUR ---
This RN spoke to Juan M, marilyn at 2145. On [address] call with other family member who is an RN. Discussed patient condition and status. Requested to have Dr. Santana call to update family and answer questions. RN notified physician of request.
--- NOTE | 2021-04-04 22:48 | NUR ---
This RN spoke to Dr. Santana about talking to family and their frustrations. Physician told RN he would call family in the morning. Relayed to family members, not happy and frustrated.
[2021-04-05] VITALS (65 sets, daily range): BP systolic 85–121; BP diastolic 36–60
[2021-04-05 04:29] LABS: CALCIUM 8.4 mg/dL (8.5-10.1); CREATININE 0.6 mg/dL (0.6-1.0)
[2021-04-05 05:15] LABS: HEMATOCRIT 25.4 % (37.0-47.0); HEMOGLOBIN 8.5 gm/dL (12.0-15.0); MCHC 33.3 g/dL (28.0-37.0); MCV 84.1 fL (80.0-100.0); RBC 3.02 mil/uL (4.20-5.00); RDW 14.3 % (10.5-14.5); WBC 13.3 thou/uL (4.0-11.0)
--- NOTE | 2021-04-05 13:19 | NUR ---
This RN spoke with patient's son and other family member - son called on 3 way call. Explained current status of patient, current drips and vitals. CT PA in room working on chest tubes and spoke with pt son after exiting room.
--- NOTE | 2021-04-05 20:06 | NUR ---
1829-NOT PROGRESSING TOWARD GOALS.--VW
--- NOTE | 2021-04-05 22:11 | NUR ---
This RN spoke with Juan M, son, at 2145. Updated on plan of care and patient status.
[2021-04-06] VITALS (27 sets, daily range): BP systolic 85–133; BP diastolic 37–67
[2021-04-06 06:01] LABS: HEMATOCRIT 22.9 % (37.0-47.0); HEMOGLOBIN 7.6 gm/dL (12.0-15.0); MCH 27.4 pg (26.0-34.0); MCV 83.1 fL (80.0-100.0); RBC 2.75 mil/uL (4.20-5.00); RDW 14.6 % (10.5-14.5); WBC 15.3 thou/uL (4.0-11.0)
[2021-04-06 06:20] LABS: CALCIUM 8.2 mg/dL (8.5-10.1); CREATININE 0.7 mg/dL (0.6-1.0); POTASSIUM 4.1 mmol/L (3.5-5.1)
--- NOTE | 2021-04-06 13:56 | NUR ---
Chart review, discussed during am unite rounds and los with hospitalist. COVID +. Vent, nutritional support Bilat chest tubes. Enhanced isolation. Cm spoke with son justina, no concerns, or questions voiced during phone call. Will cont. following as needed for discharge needs.
--- NOTE | 2021-04-06 22:13 | NUR ---
This RN spoke to Juan M, marilyn at 1940 regarding patient status. Updated on plan of care.
[2021-04-07] VITALS (67 sets, daily range): BP systolic 71–132; BP diastolic 35–68
[2021-04-07 04:36] LABS: BE(vivo) 10.1 mmol/L (-2 to +3); HCO3 34.5 mmol/L (22.0-26.0); PCO2 46.4 mmHg (35.0-45.0); PO2 59.3 mmHg (80.0-100.0); pH 7.489 (7.360-7.450); sO2 92.3 % (92.0-98.0)
[2021-04-07 05:12] LABS: ALBUMIN 1.4 g/dL (3.4-5.0); CALCIUM 7.8 mg/dL (8.5-10.1); CREATININE 0.7 mg/dL (0.6-1.0); POTASSIUM 3.8 mmol/L (3.5-5.1); TOTAL BILIRUBIN 0.2 mg/dL (0.2-1.0); TOTAL PROTEIN 5.4 g/dL (6.4-8.2)
[2021-04-07 05:36] LABS: ABSOLUTE NEUTROPHILS 10.5 thou/uL (1.4-8.2); BASOPHILS 0.5 % (0.0-2.0); EOSINOPHILS 3.4 % (0.0-3.0); LYMPHOCYTES 18.7 % (24.0-44.0); MCH 27.7 pg (26.0-34.0); MCV 83.8 fL (80.0-100.0); MONOCYTES 9.8 % (1.0-8.0); PLATELET COUNT 308 thou/uL (150-400); POLYS 67.6 % (36.0-66.0); RBC 2.29 mil/uL (4.20-5.00); RDW 14.8 % (10.5-14.5); WBC 15.5 thou/uL (4.0-11.0)
[2021-04-07 05:48] LABS: HEMATOCRIT 19.2 % (37.0-47.0); HEMOGLOBIN 6.3 gm/dL (12.0-15.0)
[2021-04-07 17:11] LABS: BE(vivo) 7.4 mmol/L (-2 to +3); PCO2 39.5 mmHg (35.0-45.0); PO2 68.1 mmHg (80.0-100.0); pH 7.512 (7.360-7.450); sO2 95.1 % (92.0-98.0)
[2021-04-07 18:41] LABS: HEMATOCRIT 22.5 % (37.0-47.0); HEMOGLOBIN 7.2 gm/dL (12.0-15.0)
[2021-04-08] VITALS (28 sets, daily range): BP systolic 93–144; BP diastolic 40–73
--- NOTE | 2021-04-08 06:00 | NUR ---
REMAINS INTUBATED AND SEDATED WITH PROPOFOL VERSESD AND FENTANYL GTTS BILAT CHEST TUBES INTACT WITH ZERO OUT 500 CC UO THIS SHIFT. REMAINS IN SINUS RHYTHM. LEVOPHED GTT AT 5 MCG COVID + NOT PROGRESSING TOWARD GOALS.
[2021-04-08 07:17] LABS: HEMATOCRIT 20.4 % (37.0-47.0); HEMOGLOBIN 6.7 gm/dL (12.0-15.0); MCHC 32.8 g/dL (28.0-37.0)
[2021-04-08 07:18] LABS: MCH 27.3 pg (26.0-34.0); MCV 83.5 fL (80.0-100.0); RBC 2.44 mil/uL (4.20-5.00); RDW 16.5 % (10.5-14.5); WBC 23.4 thou/uL (4.0-11.0)
[2021-04-08 07:23] LABS: CALCIUM 7.4 mg/dL (8.5-10.1); CREATININE 0.8 mg/dL (0.6-1.0); POTASSIUM 4.3 mmol/L (3.5-5.1)
--- NOTE | 2021-04-08 15:23 | NUR ---
ARAMIS MICHEL ON SEDATION. CONT ON TRAVIS. TURNED Q2 HRS AND FOAM DRESSING APPLIED TO BUTTOCKS. DOES NOT SEEM TO BE IN PAIN. WILL CONT WITH PLAN OF CARE.
[2021-04-08 15:50] LABS: BE(vivo) 5.4 mmol/L (-2 to +3); HCO3 28.7 mmol/L (22.0-26.0); PCO2 36.4 mmHg (35.0-45.0); pH 7.514 (7.360-7.450); sO2 83.7 % (92.0-98.0)
[2021-04-08 15:51] LABS: PO2 42.9 mmHg (80.0-100.0)
--- NOTE | 2021-04-08 20:00 | NUR ---
O2 SAT DROPPED TOP 82 % DR ESCOBAR NOTIFIED.. PT PLACED ON 100 % FIO2
--- NOTE | 2021-04-08 20:30 | NUR ---
DR ESCOBAR HERE. SUCTIONED OUT LEFT LATERAL CHEST TUBE.
--- NOTE | 2021-04-08 22:00 | NUR ---
PTS JONNATHAN ADAMS CALLED AND GIVEN AN UPDATE
[2021-04-09] VITALS (77 sets, daily range): BP systolic 88–183; BP diastolic 35–78
--- NOTE | 2021-04-09 00:30 | NUR ---
O2 SATS DOWN TP 83 % DR ESCOBAR NOTIFIED STAT CXRAY ORDERED.
--- NOTE | 2021-04-09 01:30 | NUR ---
DR ESCOBAR NOTIFIED OF C XRAY RESULTS. STATED THEY WOULD HAVE TO DC AND REPLACE THE LEFT PLEURAL TUBE TODAY. WILL CONT T O MONITOR
--- NOTE | 2021-04-09 06:00 | NUR ---
REMAINS INTUBATED AND SEDATED. O2 SAT 96 % ON 100 % FIO2. 2000 CC UO AND [address] DRG FROM LEFT PLEURAL CT AND ZERO FROM RIGHT CT. LARGE AMT OF LIGHT BROWN STICKY STOOL FROM AROUND FMS INSERTION SITE, PT BATHED AND LINEN CHANGED. NOT PROGRESSING TOWARD GOALS WILL CONT TO MONITOR.
[2021-04-09 06:55] LABS: MCH 28.2 pg (26.0-34.0); MCHC 33.2 g/dL (28.0-37.0); MCV 84.9 fL (80.0-100.0); RBC 2.21 mil/uL (4.20-5.00); RDW 16.2 % (10.5-14.5); WBC 21.1 thou/uL (4.0-11.0)
[2021-04-09 07:00] LABS: HEMATOCRIT 18.8 % (37.0-47.0); HEMOGLOBIN 6.2 gm/dL (12.0-15.0)
[2021-04-09 07:07] LABS: CALCIUM 8.1 mg/dL (8.5-10.1); CREATININE 0.9 mg/dL (0.6-1.0)
--- NOTE | 2021-04-09 13:58 | NUR ---
SPOKE WITH PATIENT'S SON, ANGIE, OVER THE PHONE FROM [phone] AND HE WAS UPDATED AND EDUCATED ON THE PATIENT'S CONDITION AND PLAN OF CARE.
[2021-04-09 14:36] LABS: HEMOGLOBIN 8.2 gm/dL (12.0-15.0)
--- NOTE | 2021-04-09 15:56 | NUR ---
Chart review, COVID. Unable to visit, enhanced isolation. discussed during los with hospitalist and unit rounds with pulmonary Md. Vent support, and nutritional support. bilat chest tubes. Jose horn has been updated by bedside nurse. will cont. following as needed for dc needs.
--- NOTE | 2021-04-09 18:09 | NUR ---
PATIENT IS NOT PROGRESSING TOWARDS PLAN OF CARE EVIDENCED BY CONTINUED NEED OF HIGH OXYGEN LEVELS AND INABILITY TO WEAN Fio2.
[2021-04-10] VITALS (51 sets, daily range): BP systolic 98–179; BP diastolic 47–84
[2021-04-10 05:03] LABS: HEMATOCRIT 22.9 % (37.0-47.0); HEMOGLOBIN 7.6 gm/dL (12.0-15.0); MCH 28.8 pg (26.0-34.0); MCHC 33.3 g/dL (28.0-37.0); MCV 86.5 fL (80.0-100.0); RBC 2.65 mil/uL (4.20-5.00); RDW 16.6 % (10.5-14.5); WBC 16.3 thou/uL (4.0-11.0)
[2021-04-10 05:37] LABS: CREATININE 0.8 mg/dL (0.6-1.0); POTASSIUM 3.6 mmol/L (3.5-5.1)
--- NOTE | 2021-04-10 07:30 | NUR ---
ASSUMED CARE AT 190. FIO2 DECREASED TO 90% AT 1999, SATS IN UPPER 90'S. 2199, SPOKE TO PT'S SON AND NIECE, GAVE UPDATE, DISCUSSED WHEN PT MIGHT COME OUT OF ISOLATION AND THAT WOULD ASK I.D. WHEN THEY ROUND. MINIMAL OUTPUT FROM CHEST TUBES. POORLY PROGRESSING TOWARDS GOALS.
--- NOTE | 2021-04-10 10:07 | NUR ---
Attempted sedation vacation this AM - held Versed and Propofol, Fentanyl on at 100. Pt woke up enough to open eyes, attempt to squeeze RN hands, began slightly biting down on ETT. Pt tolerated for almost an hour before unable to settle and needed sedation turned back on.
--- NOTE | 2021-04-10 12:14 | NUR ---
Per Dr South, change water flushes to 250ml every 6hr.
--- NOTE | 2021-04-10 15:08 | NUR ---
Spoke with son and niece on phone updated them on current ventilator and drip settings. Informed family on current lung status, chest tubes, and overall lack of significant improvement. Family understands and niece stated she would speak with pt to break news to him. They are hoping to bring pt to hospital tomorrow to visit with her now that she has been removed from isolation.
--- NOTE | 2021-04-10 16:51 | NUR ---
Pt niece at bedside, on FaceTime with pt son so he can say hi to mom. Per niece the pts will be brought up to visit tomorrow.
[2021-04-10 20:04] LABS: URINE BILIRUBIN NEGATIVE (Negative); URINE BLOOD NEGATIVE (Negative); URINE CLARITY CLEAR; URINE COLOR YELLOW; URINE GLUCOSE-RANDOM* 1+ (Negative); URINE KETONES NEGATIVE (Negative); URINE LEUKOCYTES-REFLEX NEGATIVE (Negative); URINE NITRITE-REFLEX NEGATIVE (Negative); URINE PROTEIN (DIPSTICK) NEGATIVE (Negative); URINE SPECIFIC GRAVITY <= 1.005 (1.005-1.035); URINE UROBILINOGEN 0.2 E.U./dl (0.2-1.0)
--- NOTE | 2021-04-10 22:26 | NUR ---
ASSUMED CARE AT 1900. BP AND HR ELEVATED AND O2 SAT IN UPPER 80'S; GAVE PRN LOPRESSOR FOR IMPROVEMENT TO ALL VS. PT NOT TOLERATING CARES-WILL MAINTAIN MID 90'S SAT WHILE LYING FLAT AND TURNING BUT AFTER SHE IS SAT BACK UP, SHE WILL DESAT TO LOW 80'S w/RR IN 30'S AND TAKE 30+ MINUTES TO RECOVER JUST TO 90%. HAVE INCREASED VERSED AND PROPOFOL GTTs. ABOUT 2129 CALLED P[address]IATIVE CONSULT TO DR. BRYAN ANSWERING SERVICE. 2199-SPOKE TO PT'S SON AND NIECE, UPDATED ON DIFFICULTY MAINTAINING SATS AND PALLIATIVE CONSULT. THE NIECE WILL BE BRINGING PT'S ALLEN UP TO VISIT TOMORROW; IF DR. SHERWOOD AND/OR DR. BRYAN WILL BE AVAILABLE TO TALK IN PERSON TO THE , THEY ASKED THAT A MEETING ROOM BE USED SO THE NIECE CAN BE PRESENT AND HAVE SHARON (SON) ON THE PHONE TO HELP ALLEN COPE WITH ALL THE INFORMATION. WILL CONTINUE TO MONITOR.
[2021-04-11] VITALS (79 sets, daily range): BP systolic 105–182; BP diastolic 48–84
[2021-04-11 05:06] LABS: HEMATOCRIT 21.6 % (37.0-47.0); HEMOGLOBIN 7.3 gm/dL (12.0-15.0); MCH 29.5 pg (26.0-34.0); MCHC 33.7 g/dL (28.0-37.0); MCV 87.7 fL (80.0-100.0); RBC 2.47 mil/uL (4.20-5.00); RDW 16.3 % (10.5-14.5); WBC 12.6 thou/uL (4.0-11.0)
[2021-04-11 05:08] LABS: CREATININE 0.8 mg/dL (0.6-1.0); POTASSIUM 4.2 mmol/L (3.5-5.1)
--- NOTE | 2021-04-11 10:12 | NUR ---
Various family members taking turns visiting. currently at bedside sitting with pt. At this time pt states he has no questions at this time.
--- NOTE | 2021-04-11 11:57 | NUR ---
RN spoke with Dr. South at 1156 and informed him patient's son would really like a phone call. Per Dr. South he called yesterday and did not recieve an answer but will call again today.
--- NOTE | 2021-04-11 14:34 | NUR ---
Spoke with pt son, Juan M, about filling out [facility] paperwork for him. Per son he has booked a flight and will be in [place] tomorrow evening. Will contact Dr. Maier about completing [facility] paperwork.
--- NOTE | 2021-04-11 14:42 | NUR ---
Spoke with Dr. Maier, agreed to come sign [place] paperwork and inquired as to family plan for patient going forward. RN informed him of planned family meeting tomorrow morning.
--- NOTE | 2021-04-11 22:00 | NUR ---
SPOKE WITH PTS SON TAMI HE WILL FLY IN TOMORROW. FAMILY MEETING AT 1300 WITH MACIE WILL DISCUSS CODE STATUS ANDF POSSIBLE PALLATIVE CARE
[2021-04-12] VITALS (27 sets, daily range): BP systolic 113–207; BP diastolic 58–101
--- NOTE | 2021-04-12 06:00 | NUR ---
REMAINS INTUBTED AND SEDATED. HYPERTENSIVE 2500 CC UO 80 CC DRG LEFT CHEST TUBE AND ZERO FROM RIGHT CT OLMAN GLUCERNA TF. FOLLOWS NO COMMANDS NOT PROGRESSING TOWARD GOALS
[2021-04-12 07:34] LABS: HEMOGLOBIN 8.6 gm/dL (12.0-15.0); MCH 28.4 pg (26.0-34.0); MCV 88.9 fL (80.0-100.0); RBC 3.04 mil/uL (4.20-5.00); RDW 17.9 % (10.5-14.5); WBC 14.1 thou/uL (4.0-11.0)
[2021-04-12 07:49] LABS: CALCIUM 8.5 mg/dL (8.5-10.1); CREATININE 0.6 mg/dL (0.6-1.0); POTASSIUM 4.7 mmol/L (3.5-5.1)
--- NOTE | 2021-04-12 09:41 | NUR ---
ASSUMED CARE OF PT AT 0700.
[2021-04-12 10:35] LABS: HCO3 31.7 mmol/L (22.0-26.0); PCO2 66.4 mmHg (35.0-45.0); PO2 64.2 mmHg (80.0-100.0); pH 7.297 (7.360-7.450); sO2 89.5 % (92.0-98.0)
--- NOTE | 2021-04-12 11:02 | NUR ---
DR. CALIX AT BEDSIDE AT 1100. SIGNED [facility] PAPERWORK FOR SON. NO NEW ORDERS GIVEN.
--- NOTE | 2021-04-12 11:38 | NUR ---
SPOKE TO PT'S NIECE MARYBETH AT 1138 AND SHE STATED THAT THE IS GETTING CONFUSED AND DIDN'T KNOW WHY PALLIATIVE CARE MEETING WAS CANCELLED. SHE STATED THAT SHE WILL GET IN TOUCH WITH THE PT'S SON AND SEE IF HIS FLIGHT HAS LANDED AND IF IT HAS THEY MIGHT WANT TO MEET WITH PALLIATIVE CARE TODAY. THERE WILL BE A SERGEANT OF CORRECTIONS RENETTA COMING BY AROUND NOON TO SEE THE PATIENT AND THE IS AWARE AND APPROVED THE VISIT
--- NOTE | 2021-04-12 12:29 | NUR ---
PT SON, AND AT BEDSIDE AT 1220 PT'S IMMIGRATION LAWYER CAME IN AND PRAYED WITH THE PT AT 1215
--- NOTE | 2021-04-12 14:26 | NUR ---
PALLIATIVE CARE CAME TO MEET WITH PT FAMILY TO DISCUSS CHANGING CODE STATUS TO DNR. FAMILY AGREED TO SWITCH THE PT TO NO CODE STATUS. FAMILY HAS NOT YET AGREED ON PALLIATIVE EXTUBATION.
--- NOTE | 2021-04-12 15:25 | NUR ---
Chart review. Discussed during los with hospitalist and unit rounds with pulmonary md. Vent, nutritional support. Bilat chest tubes. Palliative consult with [facility] tomorrow, so that son will be here from out of town. Spouse is at bedside. Will cont. following as needed for support. Out of Covid isolation.
[2021-04-13] VITALS (27 sets, daily range): BP systolic 115–202; BP diastolic 59–99
--- NOTE | 2021-04-13 06:00 | NUR ---
REMAINS INTUBATED AND SEDATED. PT IS A DNR NOW. SINUS RHYTHM FAMILY WILL BE IN TODAY. POSSIBLY MAKE PT COMFORT CARE. BILAT CHEST TUBES WITH ZERO DRAINAGE. 1600 CC UO NOT PROGRESSING TOWARD GOALS
[2021-04-13 07:37] LABS: HEMATOCRIT 27.8 % (37.0-47.0); HEMOGLOBIN 9.2 gm/dL (12.0-15.0); MCH 29.1 pg (26.0-34.0); MCHC 33.2 g/dL (28.0-37.0); MCV 87.9 fL (80.0-100.0); RBC 3.17 mil/uL (4.20-5.00); RDW 17.8 % (10.5-14.5); WBC 15.9 thou/uL (4.0-11.0)
[2021-04-13 07:39] LABS: CALCIUM 8.7 mg/dL (8.5-10.1); CREATININE 0.6 mg/dL (0.6-1.0); POTASSIUM 5.5 mmol/L (3.5-5.1)
--- NOTE | 2021-04-13 14:59 | NUR ---
Chart review. Discussed during los with hospitalist and unit rounds with pulmonary md. Vent, nutritional support. Bilat chest tubes. Palliative consult with [employer]CHNIC[employer] visited with family yesterday and going to follow up with family today after they were able to talk with other family members. Code status was changed to DNR. She is BPCI. Will cont. following as needed for support. Out of Covid isolation.
[2021-04-14] VITALS (19 sets, daily range): BP systolic 51–195; BP diastolic 25–98
[2021-04-14 06:05] LABS: HEMOGLOBIN 9.7 gm/dL (12.0-15.0); MCH 28.6 pg (26.0-34.0); MCHC 33.3 g/dL (28.0-37.0); RBC 3.38 mil/uL (4.20-5.00); RDW 17.3 % (10.5-14.5); WBC 18.2 thou/uL (4.0-11.0)
[2021-04-14 06:24] LABS: CALCIUM 8.6 mg/dL (8.5-10.1); CREATININE 0.6 mg/dL (0.6-1.0); POTASSIUM 5.2 mmol/L (3.5-5.1)
--- NOTE | 2021-04-14 13:37 | NUR ---
spouse present with his for several hours this am. updated on her cares, he is in agreement for comfort care with extubation at 1400. providing support.
--- NOTE | 2021-04-14 15:42 | NUR ---
premedicated with morphine 2 mg iv. just prior to extubation morphine gtt started at 2mg/hr, then extubated at 1332 and placed on 2L/nc for pt comfort. Juan M, son and Debbie, daughter again at bedside providing support. interchanging with pts spouse. dharmesh present surrounding this event, providing prayer and support to family.
--- NOTE | 2021-04-14 17:10 | NUR ---
family present in pt room providing support to pt. hr briskly dropped to 40's, then to asystole. RN confirmed no apical pulse for 1 minute, no breathing, no bp, pupils fixed & dilated. confirmed by Bruno Aguila RN at 1710. see broodmare barn groom strips, nursing summary worksheet and MTN notified of pt . placed in body bag, security notified of .
== END 2021-04-14 17:10 | DRG 870 ==
LOC: ER 22:50 → EROBS 03-22 01:10 → ICU 03-22 01:10
PROVIDERS: Emergency Medicine; Hospitalist; Internal Medicine; Internal Medicine Pulmonary Disease; Nurse Practitioner Family; Pediatrics; Specialist; ADMIT Hospitalist; ATTEND Hospitalist
PROC: XW033E5 Introduction of Remdesivir Anti-infective into Peripheral Vein, Percutaneous Approach, New Technology Group 5 (ICD-10-PCS; 2021-03-22)
PROC: 5A09357 Assistance with Respiratory Ventilation, Less than 24 Consecutive Hours, Continuous Positive Airway Pressure (ICD-10-PCS; 2021-03-22)
PROC: 5A1955Z Respiratory Ventilation, Greater than 96 Consecutive Hours (ICD-10-PCS; 2021-03-23)
PROC: 0BH17EZ Insertion of Endotracheal Airway into Trachea, Via Natural or Artificial Opening (ICD-10-PCS; 2021-03-23)
PROC: 0W9B30Z Drainage of Left Pleural Cavity with Drainage Device, Percutaneous Approach (ICD-10-PCS; 2021-03-23)
PROC: 5A09357 Assistance with Respiratory Ventilation, Less than 24 Consecutive Hours, Continuous Positive Airway Pressure (ICD-10-PCS; 2021-03-23)
PROC: B547ZZA Ultrasonography of Left Subclavian Vein, Guidance (ICD-10-PCS; 2021-03-23)
PROC: 05HY33Z Insertion of Infusion Device into Upper Vein, Percutaneous Approach (ICD-10-PCS; 2021-03-23)
PROC: 0W9930Z Drainage of Right Pleural Cavity with Drainage Device, Percutaneous Approach (ICD-10-PCS; 2021-03-25)
PROC: 0W9930Z Drainage of Right Pleural Cavity with Drainage Device, Percutaneous Approach (ICD-10-PCS; 2021-03-26)
PROC: 0W9B30Z Drainage of Left Pleural Cavity with Drainage Device, Percutaneous Approach (ICD-10-PCS; 2021-04-03)
PROC: 0W9930Z Drainage of Right Pleural Cavity with Drainage Device, Percutaneous Approach (ICD-10-PCS; principal; 2021-04-07)
PROC: 30233N1 Transfusion of Nonautologous Red Blood Cells into Peripheral Vein, Percutaneous Approach (ICD-10-PCS; principal; 2021-04-07)
DX: A41.89 Other specified sepsis (principal); J12.82 Pneumonia due to coronavirus disease 2019; U07.1 COVID-19; E43 Unspecified severe protein-calorie malnutrition; J80 Acute respiratory distress syndrome; E87.0 Hyperosmolality and hypernatremia; J93.9 Pneumothorax, unspecified; D62 Acute posthemorrhagic anemia; I10 Essential (primary) hypertension; E89.0 Postprocedural hypothyroidism; F41.9 Anxiety disorder, unspecified; T70.29XA Other effects of high altitude, initial encounter; E11.65 Type 2 diabetes mellitus with hyperglycemia; J98.2 Interstitial emphysema; Z68.28 Body mass index [BMI] 28.0-28.9, adult; Z66 Do not resuscitate; Z51.5 Encounter for palliative care; I46.9 Cardiac arrest, cause unspecified; X58.XXXA Exposure to other specified factors, initial encounter
CPT/HCPCS: 10078; 65040; 85076